=== PATIENT | female | born 1975 | race Caucasian/White ===

== ENCOUNTER 2022-11-06 18:04 | Observation (INO) | payer OTHER ==
[2022-11-06 19:36] LABS: #Monocytes 0.5 10x3/uL (0.0-1.1); #Neutrophils 1.9 10x3/uL (1.5-8.4); %Basophils 0.6 % (0.0-2.0); %Eosinophils 0.6 % (0.0-6.0); %Lymphocytes 49.8 % (18.0-47.0); %Monocytes 10.8 % (0.0-10.0); Hemoglobin 14.3 g/dL (12.0-15.5); Mean Corpuscular HGB CONC 33.5 g/dL (32.0-36.0); Mean Corpuscular Hemoglobin 31.8 pg (27.0-33.0); Mean Corpuscular Volume 94.9 fl (81.6-98.3); Mean Platelet Volume 9.3 fl (7.4-10.4); Platelet Count 264 10x3/uL (150-450); RBC Distribution Width 12.5 % (11.5-14.5)
[2022-11-06 19:47] LABS: ALT (SGPT) 27 U/L (8-55); AST (SGOT) 17 U/L (5-34); Albumin 4.4 g/dL (3.5-5.0); Alkaline Phosphatase 64 U/L (40-110); Anion Gap 11 mmol/L (10-20); BUN (Urea Nitrogen) 10 mg/dL (7.0-18.7); Bilirubin, Total 0.3 mg/dL (0.2-1.2); Calc. Creatinine Clearance 0 mL/min (70-130); Calcium 9.7 mg/dL (7.8-10.44); Carbon Dioxide 28 mmol/L (22-29); Chloride 105 mmol/L (98-107); Estimated GFR 107; Globulin 3.2 g/dL (2.4-3.5); Glucose 96 mg/dL (70-105); Lipase 31 U/L (8-78); Potassium 4.2 mmol/L (3.5-5.1); Protein, Total 7.6 g/dL (6.0-8.3); Sodium 140 mmol/L (136-145)
[2022-11-06] MEDS ORDERED: Ondansetron PF 4 MG/2 ML Vial ONE (21:30)
[2022-11-06] MEDS ORDERED: Morphine 4 MG/ML VIAL ONE (21:30)
[2022-11-07] MEDS ORDERED: Ondansetron PF 4 MG/2 ML Vial IVP PRN (00:04)
[2022-11-07] MEDS ORDERED: Ondansetron ODT 4 MG TAB PO PRN (00:04)
[2022-11-07] MEDS ORDERED: Morphine 2 MG/ML VIAL SLOW IVP PRN (00:26)
[2022-11-07 00:39] LABS: Bilirubin Neg (Negative); Blood, Urine Negative (Negative); Clarity Clear (Clear); Glucose, Urine (Dipstick) Normal (Negative); Ketone, Urine Negative (Negative); Leukocyte Negative (Negative); Nitrite Negative (Negative); Protein, Urine (Dipstick) Negative (Neg-Trace); Specific Gravity, Urine 1.015 (1.005-1.030); Urobilinogen Normal mg/dL (Less than 2)
[2022-11-07 00:42] LABS: Pregnancy Test - Urine (BHCG) Negative (Negative); Pregu Control Background? CLEAR/WHITE (CLR/WHITE); Pregu Control Bar Appear? YES (CONTROL BAR); Specific Gravity 1.015 (1.002-1.036)
[2022-11-07] MEDS ORDERED: Potassium Chloride 20 MEQ in Lactated Ringer's 1,000 ML IV SCH (01:30)
[2022-11-07 01:47] LABS: Magnesium 1.9 mg/dL (1.6-2.6)
[2022-11-07] MEDS ORDERED: Morphine 4 MG/ML VIAL ONE ×2 (02:06→10:02)
[2022-11-07] MEDS: Morphine 4 MG/ML VIAL SLOW IVP PRN ×2 (02:18→10:07)
[2022-11-07 03:56] LABS: Mean Corpuscular HGB CONC 33.5 g/dL (32.0-36.0); Mean Corpuscular Hemoglobin 31.7 pg (27.0-33.0); Mean Corpuscular Volume 94.7 fl (81.6-98.3); Mean Platelet Volume 9.3 fl (7.4-10.4); Platelet Count 210 10x3/uL (150-450); RBC Distribution Width 12.3 % (11.5-14.5); Red Blood Cell (RBC) Count 3.78 10x6/uL (3.90-5.03); White Blood Cell (WBC) Count 4.4 10x3/uL (3.5-10.5)
[2022-11-07 04:00] LABS: Anion Gap 8 mmol/L (10-20); BUN (Urea Nitrogen) 8 mg/dL (7.0-18.7); Calc. Creatinine Clearance 0 mL/min (70-130); Calcium 8.4 mg/dL (7.8-10.44); Carbon Dioxide 29 mmol/L (22-29); Chloride 107 mmol/L (98-107); Estimated GFR 109; Glucose 91 mg/dL (70-105); Sodium 140 mmol/L (136-145)
[2022-11-07 04:06] VITALS: BP 132/79; TEMP 97.9
[2022-11-07 04:10] LABS: MDiff Complete? YES
[2022-11-07 04:14] LABS: Eosinophils 2 % (0-10); Lymphocytes 53 % (21-51); Monocytes 12 % (0-10); Neutrophil 33 % (42-75)
[2022-11-07 04:16] LABS: Reflex for Review?? YES
[2022-11-07 04:17] LABS: Platelet Morphology Comment Appears Adequate; RBC Morphology Normal
[2022-11-07 04:52] LABS: SARS-CoV-2 NAA Rapid Test Not Detected (NotDetected)
[2022-11-07] MEDS ORDERED: Ondansetron PF 4 MG/2 ML Vial ONE ×2 (07:41→14:07)
[2022-11-07] MEDS ORDERED: Morphine 2 MG/ML VIAL ONE (07:41)
[2022-11-07] MEDS ORDERED: Enoxaparin Sodium 40 MG/0.4 ML SYRINGE SC SCH (09:00)
[2022-11-07] MEDS ORDERED: EPINEPHrine 1 MG/ML AMP ONE (14:04)
[2022-11-07] MEDS ORDERED: Bupivacaine PF 0.5% 30 ML VIAL ONE (14:04)
[2022-11-07] MEDS ORDERED: Rocuronium Bromide 10 MG/ML (10ML VIAL) ONE (14:07)
[2022-11-07] MEDS ORDERED: Succinylcholine 200 MG/10 ml SYRINGE FS ONE (14:07)
[2022-11-07] MEDS ORDERED: Lidocaine 1% PF 5 ML VIAL ONE (14:07)
[2022-11-07] MEDS ORDERED: PROPOFOL 20 ML ONE (14:07)
[2022-11-07] MEDS ORDERED: Fentanyl 100 MCG/2 ML VIAL ONE (14:07)
[2022-11-07] MEDS ORDERED: Dexamethasone 20 MG/5 ML VIAL ONE (14:09)
[2022-11-07] MEDS ORDERED: SUGAMMADEX SODIUM 200 MG/2 ML VIAL ONE (14:11)
[2022-11-07] MEDS ORDERED: HYDROmorphone 0.5 MG/0.5 ML SYRINGE ONE (14:12)
[2022-11-07] MEDS ORDERED: Famotidine/PF 20 mg/2ml Vial ONE (14:12)
[2022-11-07] MEDS ORDERED: Midazolam HCl 2 mg/2 ml Vial ONE (14:20)
[2022-11-07] MEDS ORDERED: CEFAZOLIN 1 GM VIAL ONE (14:33)
[2022-11-07] MEDS ORDERED: Metoclopramide HCl 10 MG/2 ML VIAL ONE (14:47)
[2022-11-07] MEDS ORDERED: Glycopyrrolate 0.2 MG/ML 5 ML SYRINGE ONE (14:47)
[2022-11-07] MEDS ORDERED: Ketorolac Tromethamine 30 MG/ML VIAL ONE (14:47)
[2022-11-07] MEDS ORDERED: Meperidine HCl/PF 25 MG/ML VIAL ONE (15:21)
== END 2022-11-07 16:10 | disposition home or self-care (01) ==
LOC: CSHERS 18:04 → INTOOBSV 23:35 → CSHERHOLD 23:35
PROVIDERS: ADMIT Family Medicine; ATTEND Internal Medicine
PROC: 0FT44ZZ Resection of Gallbladder, Percutaneous Endoscopic Approach (ICD-10-PCS; principal; 2022-11-07)
DX: K80.64 Calculus of gallbladder and bile duct with chronic cholecystitis without obstruction (principal); K31.A19 Gastric intestinal metaplasia without dysplasia, unspecified site; Z79.899 Other long term (current) drug therapy; Z20.822 Contact with and (suspected) exposure to COVID-19; G43.909 Migraine, unspecified, not intractable, without status migrainosus; Z90.49 Acquired absence of other specified parts of digestive tract
CPT/HCPCS: 36415; 76705; 80048; 80053; 81003; 81025; 83605; 83690; 83735; 85025; 85060; 88304; 96374; 96375; 96376; C1889; G0378; J0171; J0690; J1100; J1170; J1885; J2175; J2250; J2270; J2405; J2704; J2765; J3010; J3480; J7120; Q0162; S0020; S0028; U0002